=== PATIENT | male | born 1940 | race Caucasian/White ===

== ENCOUNTER 2018-06-09 08:04 | Emergency (ER) | payer SELFPAY ==
[2018-06-09 08:17] VITALS: BP 131/83; PULSE 72; TEMP 98.2; BMI 27.4
[2018-06-09 10:33] LABS: BASO % 0.6 % (0-2.0); EOS % 3.5 % (0-4.5); HEMATOCRIT 42.2 % (35.4-49); HEMOGLOBIN 13.9 GM/dL (11.7-16.9); LYMPH % 22.6 % (8-40); MCH 33.1 pg (25.7-33.7); MEAN CELL VOLUME 100.3 fl (80-96); MEAN PLT VOLUME 8.1 fl (7.5-11.1); MONO % 10.4 % (3.8-10.2); NEUT % 62.9 % (42.8-82.8); PLATELET COUNT 242 K/MM3 (134-434); RBC 4.21 M/mm3 (4.00-5.60); RDW 13.6 % (11.9-15.9); WHITE BLOOD COUNT 4.7 K/mm3 (4.0-10.0)
--- NOTE | 2018-06-09 10:40 | PDOC ---
History of Present Illness - General Chief Complaint: Edema Stated Complaint: BLOOD PRESSURE PROBLEM Time Seen by Provider: 06/09/18 08:54 - History of Present Illness Initial Comments: 06/09/18 10:38 The patient is a 78 year old male, accompanied by daughter, with a significant PMH of hypertension, diabetes mellitus, chronic back pain and hearing loss, who presents to the emergency department with 3 weeks of bilateral lower extremity edema. As per daughter, she noted the lower extremity edema after the patient returned home from a 1 year stay in the [facility]. The patient states he decided to present to the ED today as the lower extremity edema has not been resolving. The patient denies any new changes to the lower extremity swelling. Denies any calf pain or tenderness. The patient also reports dyspnea on exertion for 1 year and nocturia which he states are not changed recently. The patient denies any sick contacts. Pt takes amlodipine for his BP, had a doctor in the but no doctor here in [facility]. The patient denies chest pain, shortness of breath, headache and dizziness. Denies fever, chills, nausea, vomit, diarrhea and constipation. Denies dysuria, frequency, urgency and hematuria. Allergies: NKA Past History - Past Medical History Allergies/Adverse Reactions: Allergies Allergy/AdvReac Type Severity Reaction Status Date / Time No Known Allergies Allergy Verified 06/09/18 08:13 COPD: No Diabetes: Yes (NIDM) HTN: Yes Hypercholesterolemia: Yes - Immunization History Immunization Up to Date: Yes - Suicide/Smoking/Psychosocial Hx Smoking History: Never smoked Hx Alcohol Use: No Drug/Substance Use Hx: No Review of Systems - Review of Systems Comments:: 06/09/18 11:24 GENERAL/CONSTITUTIONAL: No fever or chills. No weakness. HEAD, EYES, EARS, NOSE AND THROAT: No change in vision. No ear pain or discharge. No sore throat. GASTROINTESTINAL: No nausea, vomiting, diarrhea or constipation. GENITOURINARY: (+) Nocturia. No dysuria, no frequency. CARDIOVASCULAR: (+) Bilateral lower extremity edema. (+) Dyspnea on exertion. No chest pain or shortness of breath. RESPIRATORY: No cough, wheezing, or hemoptysis. MUSCULOSKELETAL: No joint or muscle swelling or pain. No neck or back pain. SKIN: No rash NEUROLOGIC: No headache, vertigo, loss of consciousness, or change in strength/ sensation. ENDOCRINE: No increased thirst. No abnormal weight change. HEMATOLOGIC/LYMPHATIC: No anemia, easy bleeding, or history of blood clots. ALLERGIC/IMMUNOLOGIC: No hives or skin allergy. *Physical Exam - Vital Signs Last Vital Signs Temp Pulse Resp BP Pulse Ox 98.2 F 72 16 131/83 98 06/09/18 08:13 06/09/18 08:13 06/09/18 08:13 06/09/18 08:13 06/09/18 08:13 - Physical Exam Comments: 06/09/18 11:25 GENERAL: Awake, alert, and fully oriented, in no acute distress. Lying flat in stretcher, watching TV HEAD: No signs of trauma EYES: PERRLA, EOMI, sclera anicteric, conjunctiva clear ENT: Auricles normal inspection, +hearing impairment, nares patent, oropharynx clear without exudates. Moist mucosa NECK: Normal ROM, supple, no lymphadenopathy, JVD, or masses LUNGS: Breath sounds equal, clear to auscultation bilaterally. No wheezes, and no crackles HEART: Regular rate and rhythm, normal S1 and S2, no murmurs, rubs or gallops ABDOMEN: Soft, nontender, normoactive bowel sounds. No guarding, no rebound. No masses EXTREMITIES: Normal range of motion, trace symmetric LE edema to the knees b/l. No cords, erythema, or tenderness NEUROLOGICAL: Normal speech, cranial nerves intact, 5/5 strength in all 4 extremities, normal sensation to light touch in all 4 extremities, normal cerebellar exam, normal gait, normal tone SKIN: Warm, Dry, normal turgor, no rashes or lesions noted. Heart Score/ECG Review #1 06/09/18 11:30 Twelve-lead EKG was performed and reviewed by me. Sinus bradycardia, rate 56, Normal axis, no ELEONORA or TWI ED Treatment Course - LABORATORY CBC & Chemistry Diagram: 06/09/18 10:15 06/09/18 10:15 - ADDITIONAL ORDERS Additional order review: 06/09/18 10:15 RBC 4.21 MCV 100.3 H MCHC 33.0 RDW 13.6 MPV 8.1 Neutrophils % 62.9 Lymphocytes % 22.6 Monocytes % 10.4 H Eosinophils % 3.5 Basophils % 0.6 - RADIOLOGY Radiology Studies Ordered: Category Date Time Status CHEST PA & LAT [RAD] Stat Radiology 06/09/18 09:38 Ordered DUPLEX VASCUL US-2LEGS [US] Stat Ultrasound 06/09/18 09:39 Ordered Medical Decision Making - Medical Decision Making 06/09/18 11:35 78yo M hx HTN, DM presents to the ED with 3 weeks of LE edema, and 1 year of dyspnea on exertion. Pt presents today not 2/2 acute change but rather because the edema has not improved, and daughter wanted it checked out. Vitals wnl. Exam with very well appearing, comfortable pt, with trace LE edema. Symptoms likely 2/2 amlodipine, however in light of some risk factors and reported BANKS for 1 year, labs were checked including trop/BNP which were wnl. EKG is non ischemic. CXR is clear. Pt's daughter is working on reinstating his medicare and will take him to f/u with a PMD (referral provided). Pt requests DC home I discussed the physical exam findings, ancillary test results and final diagnoses with the patient. I answered all of the patient's questions. The patient was satisfied with the care received and felt comfortable with the discharge plan and treatment plan. The patient will call their primary care physician within 24 hours to arrange follow-up and will return to the Emergency Department with any new, persistent or worsening symptoms. *DC/Admit/Observation/Transfer Diagnosis at time of Disposition: Localized swelling of both lower extremities, Dyspnea on exertion, Dyspnea - Discharge Dispostion Disposition: HOME Condition at time of disposition: Stable Decision to Admit order: No - Referrals Referrals: [facility] [place] [Provider Group] - Patient Instructions Printed Discharge Instructions: DI for Peripheral Edema -- Bilateral Additional Instructions: Follow up with a primary care doctor within 1 week Continue to take all of your medications as prescribed Return to the emergency department if you have any new, worsening, or concerning symptoms Print Language: MALTESE - Post Discharge Activity - Attestations Physician Attestion: 06/09/18 11:39 I, Dr. Mitch Cam MD, attest that this document has been prepared under my direction and personally reviewed by me in its entirety. I further attest, that it accurately reflects all work, treatment, procedures and medical decision -making performed by me.
[2018-06-09 10:58] LABS: ALBUMIN 3.7 g/dl (3.4-5.0); ALK PHOS 77 U/L (45-117); ANION GAP 7 MMOL/L (8-16); BILIRUBIN,TOTAL 0.4 mg/dL (0.2-1); BLOOD UREA NITROGEN 21 mg/dL (7-18); CALCIUM 8.8 mg/dL (8.5-10.1); CHLORIDE 109 mmol/L (98-107); CO2 27 mmol/L (21-32); CREATININE 1.1 mg/dL (0.55-1.3); GLUCOSE,RANDOM 91 mg/dL (74-106); N-TERMINAL BNP 18.5 pg/ml (5-450); POTASSIUM 4.1 mmol/L (3.5-5.1); SGOT/AST 15 U/L (15-37); SGPT/ALT 13 U/L (13-61); SODIUM 143 mmol/L (136-145); TOT PROT 7.5 g/dl (6.4-8.2)
--- NOTE | 2018-06-10 11:38 | EKG ---
Test Reason : Blood Pressure : / mmHG Vent. Rate : 056 BPM Atrial Rate : 056 BPM P-R Int : 148 ms QRS Dur : 088 ms QT Int : 404 ms P-R-T Axes : -28 -26 031 degrees QTc Int : 389 ms SINUS BRADYCARDIA WITH SINUS ARRHYTHMIA LOW VOLTAGE QRS BORDERLINE ECG NO PREVIOUS ECGS AVAILABLE Confirmed by ALY DILLARD MD ([id number]) on 06/10/2018 11:38:11 AM Referred By: Confirmed By:ALY DILLARD MD
== END 2018-06-09 11:45 | disposition home or self-care (01) ==
LOC: JER 08:04
DX: R60.0 Localized edema (principal); R06.9 Unspecified abnormalities of breathing; R53.1 Weakness; R35.1 Nocturia; I10 Essential (primary) hypertension; E11.9 Type 2 diabetes mellitus without complications; Z79.84 Long term (current) use of oral hypoglycemic drugs; E78.00 Pure hypercholesterolemia, unspecified
CPT/HCPCS: 36415; 71046-TC-FY; 80053; 83735; 83880; 84484; 85025; 93005; 93010; 93970-TC; 99282-25